=== PATIENT | male | born 1950 | race Caucasian/White ===

== ENCOUNTER 2020-10-12 17:32 | Inpatient (IN) | payer MEDICARE, MEDICAID ==
[~2020-10-12] VITALS: Ht 167.6 cm; Wt 63.2 kg
[2020-10-12] MEDS ORDERED: PIPERACILLIN/TAZ 3.375G PREMIX 50 ML IV ONE (19:52)
[2020-10-12] MEDS ORDERED: PIPERACILLIN/TAZOBACTAM 3.375GM/50ML PREMIX IV ONE (20:00)
[2020-10-12] MEDS ORDERED: VANCOMYCIN 1 G PREMIX 200 ML IV SCH (20:00)
[2020-10-12] MEDS ORDERED: SODIUM CHLORIDE 0.9% 1,000 ML IV ONE (20:00)
[2020-10-12 20:20] LABS: EOSINOPHILS % 2.7 % (0.0-5.0); HEMATOCRIT. 29.4 % (42.0-52.0); LYMPHOCYTES % 14.3 % (20.0-50.0); MEAN CORPUSCULAR HEMOGLOBIN 28.6 pg (28.0-32.0); MEAN CORPUSCULAR VOLUME 83.8 fL (80.0-94.0); MEAN PLATELET VOLUME 7.8 fl (7.4-10.4); MONOCYTES % 14.5 % (2.0-8.0); NEUTROPHILS % 67.5 % (40.0-76.0); PLATELET 371 x1000/uL (130-400); RED BLOOD CELL COUNT 3.51 mill/uL (4.7-6.1); RED CELL DISTRIBUTION WIDTH 14.8 % (11.6-14.6)
[2020-10-12 20:40] LABS: CHLORIDE 100 mEq/L (98-107)
[2020-10-12 20:41] LABS: PROTHROMBIN TIME 10.8 sec (9.6-11.0)
[2020-10-12 21:37] LABS: CLARITY URINE CLEAR (CLEAR); COLOR URINE YELLOW (YELLOW); KETONES URINE NEGATIVE (NEGATIVE); LEUKOCYTE ESTERASE URINE NEGATIVE (NEGATIVE); NITRITE URINE NEGATIVE (NEGATIVE); OCCULT BLOOD URINE NEGATIVE (NEGATIVE); PH URINE 8.5 (4.5-8.0); PROTEIN URINE NEGATIVE (NEGATIVE); SPECIFIC GRAVITY URINE 1.025 (1.005-1.030); UROBILINOGEN URINE 0.2 E.U./dL (0.2-1.0)
[2020-10-12] MEDS ORDERED: ONDANSETRON HCL 4MG/2ML INJ IV PRN (22:00)
[2020-10-12] MEDS ORDERED: GUAIFENESIN 200MG/10ML SUGAR FREE UDC PO PRN (22:00)
[2020-10-12] MEDS ORDERED: DEXTROSE 50% WATER 50ML SYRINGE IV PRN (22:00)
[2020-10-12] MEDS ORDERED: DOCUSATE SODIUM 100MG CAPSULE PO PRN (22:00)
[2020-10-12] MEDS ORDERED: MORPHINE SULFATE 2 MG/ML CPJ (NOT FOR IM USE) IV PRN (22:00)
[2020-10-12] MEDS ORDERED: ACETAMINOPHEN 650MG SUPP PR PRN (22:00)
[2020-10-12] MEDS ORDERED: MAGNESIUM/ALUMINUM HYDROXIDE/SIMETHICONE 30ML UDC PO PRN (22:00)
[2020-10-12] MEDS ORDERED: IPRATROPIUM/ALBUTEROL 0.5-3(2.5)MG/3ML NEB HHN PRN (22:00)
[2020-10-12] MEDS ORDERED: ACETAMINOPHEN 325MG TABLET PO PRN ×2 (22:00)
[2020-10-12] MEDS: CLONIDINE 0.1MG TABLET PO PRN (22:28)
[2020-10-12] MEDS ORDERED: NALOXONE HCL 0.4MG/ML VIAL IV PRN (22:30)
[2020-10-12 23:26] VITALS: BP 119/95
[2020-10-12] MEDS: HALOPERIDOL LACTATE 5MG/ML VIAL IM PRN (23:59)
[2020-10-12] MEDS: ENOXAPARIN 40MG/0.4ML SYR SUBCUT SCH (23:59)
[2020-10-13] VITALS (14 sets, daily range): BP systolic 117–180; BP diastolic 69–100
[2020-10-13] MEDS: DIPHENHYDRAMINE 50MG/ML VIAL IV PRN (01:34)
[2020-10-13] MEDS: CLONIDINE 0.1MG TABLET PO PRN (05:03)
[2020-10-13] MEDS: BLOOD SUGAR DIAGNOSTIC STRIP TEST SCH ×4 (06:05→21:23)
[2020-10-13 07:12] LABS: BASOPHILS % 1.1 % (0.0-2.0); EOSINOPHILS % 3.3 % (0.0-5.0); HEMATOCRIT. 34.4 % (42.0-52.0); HEMOGLOBIN. 11.2 g/dL (14.0-18.0); LYMPHOCYTES % 18.1 % (20.0-50.0); MEAN CORPUSCULAR HEMOGLOBIN 27.7 pg (28.0-32.0); MEAN PLATELET VOLUME 8.1 fl (7.4-10.4); MONOCYTES % 12.4 % (2.0-8.0); NEUTROPHILS % 65.1 % (40.0-76.0); PLATELET 363 x1000/uL (130-400); RED BLOOD CELL COUNT 4.04 mill/uL (4.7-6.1); RED CELL DISTRIBUTION WIDTH 14.9 % (11.6-14.6)
[2020-10-13 07:23] LABS: CHLORIDE 105 mEq/L (98-107)
[2020-10-13 07:35] LABS: LDL CHOLESTEROL 85 mg/dL (5-100)
[2020-10-13 07:36] LABS: CREATINE KINASE 140 IU/L (39-308)
[2020-10-13 07:37] LABS: HDL CHOLESTEROL 45 mg/dL (40-59); T4 FREE 1.19 ng/dL (0.76-1.46)
[2020-10-13] MEDS: AMLODIPINE 5MG TABLET PO SCH ×2 (08:56→21:23)
[2020-10-13] MEDS: METFORMIN HCL 500MG TABLET PO SCH ×2 (08:56→16:43)
[2020-10-13] MEDS: ASPIRIN 81MG EC TABLET PO SCH (08:56)
[2020-10-13] MEDS: INSULIN LISPRO 100 UNITS/ML SUBCUT SCH ×4 (09:22→21:27)
[2020-10-13] MEDS: PIPERACILLIN/TAZOBACTAM 3.375 G in DEXTROSE 5% WATER 50 ML IV SCH ×2 (13:51→19:26)
[2020-10-13] MEDS: VANCOMYCIN 750 MG PREMIX 150 ML IV SCH (14:52)
[2020-10-13] MEDS: SODIUM HYPOCHLORITE 0.125% 473ML SOLUTION TOP SCH (14:53)
[2020-10-13] MEDS ORDERED: FUROSEMIDE 40MG/4ML VIAL IVP NR (16:00)
[2020-10-13] MEDS: ENOXAPARIN 40MG/0.4ML SYR SUBCUT SCH (21:23)
[2020-10-13] MEDS: HALOPERIDOL LACTATE 5MG/ML VIAL IM PRN (22:26)
[2020-10-14] VITALS (11 sets, daily range): BP systolic 100–155; BP diastolic 59–88
[2020-10-14] MEDS: PIPERACILLIN/TAZOBACTAM 3.375 G in DEXTROSE 5% WATER 50 ML IV SCH ×4 (00:43→18:09)
[2020-10-14] MEDS: VANCOMYCIN 750 MG PREMIX 150 ML IV SCH ×2 (01:23→13:13)
[2020-10-14] MEDS: BLOOD SUGAR DIAGNOSTIC STRIP TEST SCH ×4 (06:52→20:03)
[2020-10-14] MEDS: INSULIN LISPRO 100 UNITS/ML SUBCUT SCH ×4 (07:20→21:14)
[2020-10-14] MEDS: METFORMIN HCL 500MG TABLET PO SCH ×2 (09:10→18:09)
[2020-10-14] MEDS: SODIUM HYPOCHLORITE 0.125% 473ML SOLUTION TOP SCH (09:10)
[2020-10-14] MEDS: ASPIRIN 81MG EC TABLET PO SCH (09:10)
[2020-10-14] MEDS: FUROSEMIDE 20MG/2ML VIAL IVP SCH (09:10)
[2020-10-14] MEDS: AMLODIPINE 5MG TABLET PO SCH ×2 (09:11→19:50)
[2020-10-14 09:33] LABS: BASOPHILS % 0.8 % (0.0-2.0); EOSINOPHILS % 1.9 % (0.0-5.0); HEMATOCRIT. 35.1 % (42.0-52.0); HEMOGLOBIN. 11.6 g/dL (14.0-18.0); LYMPHOCYTES % 13.7 % (20.0-50.0); MEAN CORPUSCULAR HEMOGLOBIN 27.6 pg (28.0-32.0); MEAN CORPUSCULAR VOLUME 83.7 fL (80.0-94.0); MEAN PLATELET VOLUME 7.3 fl (7.4-10.4); MONOCYTES % 11.2 % (2.0-8.0); NEUTROPHILS % 72.4 % (40.0-76.0); PLATELET 440 x1000/uL (130-400); RED BLOOD CELL COUNT 4.19 mill/uL (4.7-6.1); RED CELL DISTRIBUTION WIDTH 15.1 % (11.6-14.6)
[2020-10-14 09:51] LABS: CHLORIDE 101 mEq/L (98-107)
[2020-10-14] MEDS: FAMOTIDINE 20MG TABLET PO SCH (19:50)
[2020-10-14] MEDS: LORAZEPAM 2MG/ML CPJ IV PRN (19:51)
[2020-10-15] VITALS (10 sets, daily range): BP systolic 109–142; BP diastolic 40–79
[2020-10-15] MEDS: PIPERACILLIN/TAZOBACTAM 3.375 G in DEXTROSE 5% WATER 50 ML IV SCH ×5 (00:10→23:45)
[2020-10-15] MEDS: VANCOMYCIN 750 MG PREMIX 150 ML IV SCH (01:16)
[2020-10-15] MEDS: BLOOD SUGAR DIAGNOSTIC STRIP TEST SCH ×4 (06:26→20:16)
[2020-10-15 06:54] LABS: CHLORIDE 101 mEq/L (98-107)
[2020-10-15] MEDS: INSULIN LISPRO 100 UNITS/ML SUBCUT SCH ×4 (07:20→20:19)
[2020-10-15] MEDS: METFORMIN HCL 500MG TABLET PO SCH ×2 (07:20→16:44)
[2020-10-15 07:26] LABS: BASOPHILS % 1.3 % (0.0-2.0); EOSINOPHILS % 2.2 % (0.0-5.0); HEMOGLOBIN. 11.1 g/dL (14.0-18.0); LYMPHOCYTES % 16.4 % (20.0-50.0); MEAN CORPUSCULAR HEMOGLOBIN 27.5 pg (28.0-32.0); MEAN CORPUSCULAR VOLUME 84.2 fL (80.0-94.0); MEAN PLATELET VOLUME 7.7 fl (7.4-10.4); NEUTROPHILS % 68.1 % (40.0-76.0); PLATELET 422 x1000/uL (130-400); RED BLOOD CELL COUNT 4.04 mill/uL (4.7-6.1); RED CELL DISTRIBUTION WIDTH 15.4 % (11.6-14.6)
[2020-10-15] MEDS: FUROSEMIDE 20MG/2ML VIAL IVP SCH (08:53)
[2020-10-15] MEDS: ASPIRIN 81MG EC TABLET PO SCH (09:00)
[2020-10-15] MEDS: AMLODIPINE 5MG TABLET PO SCH ×2 (09:00→20:16)
[2020-10-15] MEDS: SODIUM HYPOCHLORITE 0.125% 473ML SOLUTION TOP SCH (09:00)
[2020-10-15] MEDS: LISINOPRIL 2.5MG TABLET PO SCH (10:00)
[2020-10-15] MEDS ORDERED: VANCOMYCIN HCL 1 GM/VIAL ONE (11:36)
[2020-10-15] MEDS ORDERED: BACITRACIN 50,000 UNITS/VIAL ONE (11:36)
[2020-10-15] MEDS ORDERED: PROPOFOL 200MG/20ML VIAL IV ONE (11:37)
[2020-10-15] MEDS ORDERED: FENTANYL CITRATE/PF 50MCG/ML 2ML VIAL ONE (11:37)
[2020-10-15] MEDS ORDERED: ONDANSETRON HCL 4MG/2ML INJ ONE (11:57)
[2020-10-15] MEDS ORDERED: DEXAMETHASONE 4MG/ML 1ML VIAL ONE (11:57)
[2020-10-15] MEDS ORDERED: EPHEDRINE SULFATE 50MG/ML VIAL ONE (11:57)
[2020-10-15] MEDS ORDERED: METOCLOPRAMIDE HCL 10MG/2ML VIAL ONE (11:57)
[2020-10-15] MEDS ORDERED: ONDANSETRON HCL 4MG/2ML INJ IV PRN (12:45)
[2020-10-15] MEDS ORDERED: FENTANYL CITRATE/PF 50MCG/ML 2ML VIAL IV PRN (12:45)
[2020-10-15] MEDS ORDERED: SODIUM CHLORIDE 0.9% 1,000 ML IV SCH (12:45)
[2020-10-15] MEDS ORDERED: HYDROMORPHONE HCL/PF 2MG/ML CPJ IV PRN (12:45)
[2020-10-15] MEDS ORDERED: MEPERIDINE HCL/PF 25MG/ML CPJ IV PRN (12:45)
[2020-10-15] MEDS ORDERED: KETOROLAC 30MG/ML VIAL ONE (12:53)
[2020-10-15] MEDS ORDERED: VANCOMYCIN 1 G PREMIX 200 ML IV SCH (18:00)
[2020-10-15] MEDS: FAMOTIDINE 20MG TABLET PO SCH (20:14)
[2020-10-15] MEDS: ENOXAPARIN 40MG/0.4ML SYR SUBCUT SCH (21:37)
[2020-10-15] MEDS: LORAZEPAM 2MG/ML CPJ IV PRN (21:37)
[2020-10-16] VITALS (10 sets, daily range): BP systolic 100–165; BP diastolic 61–92
[2020-10-16] MEDS: PIPERACILLIN/TAZOBACTAM 3.375 G in DEXTROSE 5% WATER 50 ML IV SCH ×4 (05:18→23:20)
[2020-10-16] MEDS: BLOOD SUGAR DIAGNOSTIC STRIP TEST SCH ×4 (06:27→21:00)
[2020-10-16] MEDS: METFORMIN HCL 500MG TABLET PO SCH ×2 (07:59→16:38)
[2020-10-16] MEDS: INSULIN LISPRO 100 UNITS/ML SUBCUT SCH ×4 (08:00→22:01)
[2020-10-16 08:02] LABS: BASOPHILS % 0.7 % (0.0-2.0); EOSINOPHILS % 0.7 % (0.0-5.0); HEMATOCRIT. 30.5 % (42.0-52.0); MEAN CORPUSCULAR HEMOGLOBIN 27.7 pg (28.0-32.0); MEAN CORPUSCULAR VOLUME 84.3 fL (80.0-94.0); MEAN PLATELET VOLUME 7.3 fl (7.4-10.4); MONOCYTES % 8.8 % (2.0-8.0); NEUTROPHILS % 74.8 % (40.0-76.0); PLATELET 390 x1000/uL (130-400); RED BLOOD CELL COUNT 3.62 mill/uL (4.7-6.1); RED CELL DISTRIBUTION WIDTH 15.1 % (11.6-14.6)
[2020-10-16 08:23] LABS: CHLORIDE 105 mEq/L (98-107)
[2020-10-16] MEDS: AMLODIPINE 5MG TABLET PO SCH ×2 (08:53→22:00)
[2020-10-16] MEDS: LISINOPRIL 2.5MG TABLET PO SCH (08:53)
[2020-10-16] MEDS: FUROSEMIDE 20MG/2ML VIAL IVP SCH (08:54)
[2020-10-16] MEDS: ASPIRIN 81MG EC TABLET PO SCH (08:54)
[2020-10-16] MEDS: SODIUM HYPOCHLORITE 0.125% 473ML SOLUTION TOP SCH (09:00)
[2020-10-16] MEDS: LORAZEPAM 2MG/ML CPJ IV PRN (19:04)
[2020-10-16] MEDS: ENOXAPARIN 40MG/0.4ML SYR SUBCUT SCH (21:59)
[2020-10-16] MEDS: FAMOTIDINE 20MG TABLET PO SCH (22:00)
[2020-10-17] VITALS (7 sets, daily range): BP systolic 83–167; BP diastolic 47–89
[2020-10-17] MEDS: DIPHENHYDRAMINE 50MG/ML VIAL IV PRN (00:45)
[2020-10-17] MEDS: LORAZEPAM 2MG/ML CPJ IV PRN (04:12)
[2020-10-17] MEDS: PIPERACILLIN/TAZOBACTAM 3.375 G in DEXTROSE 5% WATER 50 ML IV SCH ×3 (06:04→18:03)
[2020-10-17 06:53] LABS: BASOPHILS % 1.4 % (0.0-2.0); CHLORIDE 107 mEq/L (98-107); EOSINOPHILS % 2.2 % (0.0-5.0); HEMATOCRIT. 32.1 % (42.0-52.0); HEMOGLOBIN. 10.4 g/dL (14.0-18.0); LYMPHOCYTES % 20.1 % (20.0-50.0); MEAN CORPUSCULAR HEMOGLOBIN 27.6 pg (28.0-32.0); MEAN CORPUSCULAR VOLUME 85.2 fL (80.0-94.0); MEAN PLATELET VOLUME 7.7 fl (7.4-10.4); MONOCYTES % 9.4 % (2.0-8.0); NEUTROPHILS % 66.9 % (40.0-76.0); PLATELET 369 x1000/uL (130-400); RED BLOOD CELL COUNT 3.77 mill/uL (4.7-6.1); RED CELL DISTRIBUTION WIDTH 15.1 % (11.6-14.6)
[2020-10-17] MEDS: BLOOD SUGAR DIAGNOSTIC STRIP TEST SCH ×4 (06:53→20:36)
[2020-10-17] MEDS: METFORMIN HCL 500MG TABLET PO SCH ×2 (07:50→17:58)
[2020-10-17] MEDS: INSULIN LISPRO 100 UNITS/ML SUBCUT SCH ×4 (07:50→21:11)
[2020-10-17] MEDS: FUROSEMIDE 20MG/2ML VIAL IVP SCH (10:06)
[2020-10-17] MEDS: ASPIRIN 81MG EC TABLET PO SCH (10:09)
[2020-10-17] MEDS: AMLODIPINE 5MG TABLET PO SCH ×2 (10:12→21:00)
[2020-10-17] MEDS: LISINOPRIL 2.5MG TABLET PO SCH (10:12)
[2020-10-17] MEDS: HYDROCODONE/ACETAMINOPHEN 5/325MG TABLET PO PRN ×2 (10:15→18:01)
[2020-10-17] MEDS: SODIUM HYPOCHLORITE 0.125% 473ML SOLUTION TOP SCH (10:19)
[2020-10-17] MEDS: HALOPERIDOL LACTATE 5MG/ML VIAL IM PRN (15:46)
[2020-10-17] MEDS: SODIUM CHLORIDE 0.45% 1,000 ML IV SCH (17:00)
[2020-10-17] MEDS: ENOXAPARIN 40MG/0.4ML SYR SUBCUT SCH (21:08)
[2020-10-17] MEDS: FAMOTIDINE 20MG TABLET PO SCH (21:08)
[2020-10-18] VITALS: BP 149/104
[2020-10-18] MEDS: PIPERACILLIN/TAZOBACTAM 3.375 G in DEXTROSE 5% WATER 50 ML IV SCH ×4 (00:24→17:29)
[2020-10-18] MEDS: LORAZEPAM 2MG/ML CPJ IV PRN ×3 (01:44→21:31)
[2020-10-18] MEDS: SODIUM CHLORIDE 0.45% 1,000 ML IV SCH ×3 (01:45→22:45)
[2020-10-18 04:00] VITALS: BP 154/88
[2020-10-18 06:45] LABS: BASOPHILS % 1.9 % (0.0-2.0); EOSINOPHILS % 3.3 % (0.0-5.0); HEMATOCRIT. 30.5 % (42.0-52.0); HEMOGLOBIN. 10.1 g/dL (14.0-18.0); LYMPHOCYTES % 21.5 % (20.0-50.0); MEAN CORPUSCULAR HEMOGLOBIN 27.8 pg (28.0-32.0); MEAN CORPUSCULAR VOLUME 83.7 fL (80.0-94.0); MEAN PLATELET VOLUME 7.6 fl (7.4-10.4); MONOCYTES % 9.5 % (2.0-8.0); NEUTROPHILS % 63.8 % (40.0-76.0); PLATELET 371 x1000/uL (130-400); RED BLOOD CELL COUNT 3.64 mill/uL (4.7-6.1)
[2020-10-18] MEDS: BLOOD SUGAR DIAGNOSTIC STRIP TEST SCH ×4 (06:47→21:31)
[2020-10-18] MEDS: METFORMIN HCL 500MG TABLET PO SCH ×2 (06:47→16:30)
[2020-10-18] MEDS: INSULIN LISPRO 100 UNITS/ML SUBCUT SCH ×4 (07:50→21:46)
[2020-10-18 08:00] VITALS: BP 152/84
[2020-10-18 08:23] LABS: CHLORIDE 104 mEq/L (98-107)
[2020-10-18] MEDS: ASPIRIN 81MG EC TABLET PO SCH (09:00)
[2020-10-18] MEDS: SODIUM HYPOCHLORITE 0.125% 473ML SOLUTION TOP SCH (09:00)
[2020-10-18] MEDS: AMLODIPINE 5MG TABLET PO SCH ×2 (09:00→21:00)
[2020-10-18] MEDS: LISINOPRIL 2.5MG TABLET PO SCH (09:00)
[2020-10-18] MEDS: FUROSEMIDE 20MG/2ML VIAL IVP SCH (11:05)
[2020-10-18 12:00] VITALS: BP 116/74
[2020-10-18 20:00] VITALS: BP 117/65
[2020-10-18] MEDS: HALOPERIDOL LACTATE 5MG/ML VIAL IM PRN (20:21)
[2020-10-18] MEDS: FAMOTIDINE 20MG TABLET PO SCH (21:30)
[2020-10-18] MEDS: ENOXAPARIN 40MG/0.4ML SYR SUBCUT SCH (21:31)
[2020-10-19] VITALS: BP 120/75
[2020-10-19] MEDS: PIPERACILLIN/TAZOBACTAM 3.375 G in DEXTROSE 5% WATER 50 ML IV SCH ×4 (00:48→18:46)
[2020-10-19] MEDS: HALOPERIDOL LACTATE 5MG/ML VIAL IM PRN ×2 (02:58→22:36)
[2020-10-19 04:00] VITALS: BP 118/68
[2020-10-19] MEDS: LORAZEPAM 2MG/ML CPJ IV PRN (04:39)
[2020-10-19] MEDS: BLOOD SUGAR DIAGNOSTIC STRIP TEST SCH ×4 (06:54→22:15)
[2020-10-19] MEDS: METFORMIN HCL 500MG TABLET PO SCH ×2 (07:50→18:46)
[2020-10-19 08:00] VITALS: BP 134/62
[2020-10-19] MEDS: AMLODIPINE 5MG TABLET PO SCH ×2 (09:00→22:43)
[2020-10-19] MEDS: ASPIRIN 81MG EC TABLET PO SCH (09:00)
[2020-10-19] MEDS: SODIUM HYPOCHLORITE 0.125% 473ML SOLUTION TOP SCH (09:00)
[2020-10-19] MEDS: LISINOPRIL 2.5MG TABLET PO SCH (09:00)
[2020-10-19] MEDS: FUROSEMIDE 20MG/2ML VIAL IVP SCH (09:37)
[2020-10-19] MEDS: SODIUM CHLORIDE 0.45% 1,000 ML IV SCH ×2 (09:43→19:10)
[2020-10-19] MEDS: INSULIN LISPRO 100 UNITS/ML SUBCUT SCH ×4 (09:48→21:00)
[2020-10-19 12:00] VITALS: BP 136/68
[2020-10-19 16:00] VITALS: BP 119/73
[2020-10-19 20:00] VITALS: BP 124/77
[2020-10-19] MEDS: FAMOTIDINE 20MG TABLET PO SCH (22:23)
[2020-10-19] MEDS: ENOXAPARIN 40MG/0.4ML SYR SUBCUT SCH (22:24)
[2020-10-20] VITALS (7 sets, daily range): BP systolic 113–132; BP diastolic 61–82
[2020-10-20] MEDS: PIPERACILLIN/TAZOBACTAM 3.375 G in DEXTROSE 5% WATER 50 ML IV SCH ×5 (02:46→23:55)
[2020-10-20] MEDS: BLOOD SUGAR DIAGNOSTIC STRIP TEST SCH ×4 (07:05→21:58)
[2020-10-20] MEDS: METFORMIN HCL 500MG TABLET PO SCH ×2 (07:05→18:49)
[2020-10-20] MEDS: AMLODIPINE 5MG TABLET PO SCH ×2 (09:42→21:59)
[2020-10-20] MEDS: FUROSEMIDE 20MG/2ML VIAL IVP SCH (09:43)
[2020-10-20] MEDS: ASPIRIN 81MG EC TABLET PO SCH (09:43)
[2020-10-20] MEDS: LISINOPRIL 2.5MG TABLET PO SCH (09:43)
[2020-10-20] MEDS: SODIUM HYPOCHLORITE 0.125% 473ML SOLUTION TOP SCH (09:44)
[2020-10-20] MEDS: INSULIN LISPRO 100 UNITS/ML SUBCUT SCH ×4 (09:49→22:09)
[2020-10-20] MEDS ORDERED: LIDOCAINE HCL 1% 20ML VIAL (Pyxis) INJ ONE (10:54)
[2020-10-20] MEDS: SODIUM CHLORIDE 0.45% 1,000 ML IV SCH ×3 (14:05→14:07)
[2020-10-20] MEDS ORDERED: NYSTATIN/TRIAMCIN OINT 15GM TOP SCH (17:00)
[2020-10-20] MEDS: FAMOTIDINE 20MG TABLET PO SCH (21:59)
[2020-10-20] MEDS: ENOXAPARIN 40MG/0.4ML SYR SUBCUT SCH (21:59)
[2020-10-20] MEDS: HALOPERIDOL LACTATE 5MG/ML VIAL IM PRN (22:00)
[2020-10-21] VITALS: BP 101/58
[2020-10-21 04:00] VITALS: BP 116/80
[2020-10-21] MEDS: PIPERACILLIN/TAZOBACTAM 3.375 G in DEXTROSE 5% WATER 50 ML IV SCH (06:28)
[2020-10-21] MEDS: BLOOD SUGAR DIAGNOSTIC STRIP TEST SCH (06:29)
[2020-10-21 07:25] LABS: BASOPHILS % 1.3 % (0.0-2.0); HEMATOCRIT. 33.2 % (42.0-52.0); LYMPHOCYTES % 20.9 % (20.0-50.0); MEAN CORPUSCULAR HEMOGLOBIN 27.5 pg (28.0-32.0); MEAN PLATELET VOLUME 8.1 fl (7.4-10.4); MONOCYTES % 9.7 % (2.0-8.0); NEUTROPHILS % 65.1 % (40.0-76.0); PLATELET 368 x1000/uL (130-400); RED CELL DISTRIBUTION WIDTH 15.2 % (11.6-14.6)
[2020-10-21] MEDS: INSULIN LISPRO 100 UNITS/ML SUBCUT SCH (07:50)
[2020-10-21 08:00] VITALS: BP 132/77
[2020-10-21 08:44] LABS: CHLORIDE 105 mEq/L (98-107)
[2020-10-21] MEDS: ASPIRIN 81MG EC TABLET PO SCH (08:54)
[2020-10-21] MEDS: FUROSEMIDE 20MG/2ML VIAL IVP SCH (08:54)
[2020-10-21] MEDS: METFORMIN HCL 500MG TABLET PO SCH (08:54)
[2020-10-21] MEDS: LISINOPRIL 2.5MG TABLET PO SCH (08:55)
[2020-10-21] MEDS: AMLODIPINE 5MG TABLET PO SCH (08:55)
[2020-10-21] MEDS: HALOPERIDOL LACTATE 5MG/ML VIAL IM PRN (08:56)
[2020-10-21] MEDS: SODIUM HYPOCHLORITE 0.125% 473ML SOLUTION TOP SCH (08:58)
[2020-10-21 10:20] VITALS: BP 132/77
[2020-11-05] MEDS ORDERED: MEMA5TAB42 PO (10:53)
[2020-11-05] MEDS ORDERED: FAMO20TA8 PO (10:53)
[2020-11-05] MEDS ORDERED: AMLO5TAB88 PO (10:53)
[2020-11-05] MEDS ORDERED: METF-873 PO (10:53)
[2020-11-05] MEDS ORDERED: FURO20TA4 PO (10:53)
[2020-11-05] MEDS ORDERED: LORA2DIS6 SQ (10:53)
[2020-11-05] MEDS ORDERED: QUET25TA34 PO (10:53)
[2020-11-05] MEDS ORDERED: LEVO750T46 PO (10:53)
== END 2020-10-21 10:40 | DRG 616 ==
LOC: EDBD 17:32 → ER 17:32 → 3WST 21:37 → EDBEDREQ 21:39 → EDBEDREQSVC 21:39 → EDBEDREQTM 21:39 → ENRESERV 22:00 → 3WST 10-13 02:58 → 6EST 10-17 02:27
PROVIDERS: ADMIT Internal Medicine; ATTEND Internal Medicine
PROC: 0Y6T0Z0 Detachment at Right 3rd Toe, Complete, Open Approach (ICD-10-PCS; principal; 2020-10-15)
PROC: 0QBN0ZZ Excision of Right Metatarsal, Open Approach (ICD-10-PCS; 2020-10-15)
PROC: 0QBN0ZZ Excision of Right Metatarsal, Open Approach (ICD-10-PCS; 2020-10-20)
PROC: B5181ZA Fluoroscopy of Superior Vena Cava using Low Osmolar Contrast, Guidance (ICD-10-PCS; 2020-10-20)
PROC: 02HV33Z Insertion of Infusion Device into Superior Vena Cava, Percutaneous Approach (ICD-10-PCS; 2020-10-20)
PROC: B548ZZA Ultrasonography of Superior Vena Cava, Guidance (ICD-10-PCS; 2020-10-20)
DX: E11.621 Type 2 diabetes mellitus with foot ulcer (principal); E43 Unspecified severe protein-calorie malnutrition; G93.41 Metabolic encephalopathy; E87.1 Hypo-osmolality and hyponatremia; L03.115 Cellulitis of right lower limb; I31.3 Pericardial effusion (noninflammatory); J84.9 Interstitial pulmonary disease, unspecified; M86.171 Other acute osteomyelitis, right ankle and foot; E11.69 Type 2 diabetes mellitus with other specified complication; E11.51 Type 2 diabetes mellitus with diabetic peripheral angiopathy without gangrene; D64.9 Anemia, unspecified; E11.65 Type 2 diabetes mellitus with hyperglycemia; B96.5 Pseudomonas (aeruginosa) (mallei) (pseudomallei) as the cause of diseases classified elsewhere; F10.10 Alcohol abuse, uncomplicated; Z20.822 Contact with and (suspected) exposure to COVID-19; I10 Essential (primary) hypertension; I35.0 Nonrheumatic aortic (valve) stenosis; L97.519 Non-pressure chronic ulcer of other part of right foot with unspecified severity; Z82.49 Family history of ischemic heart disease and other diseases of the circulatory system; Z91.19 Patient's noncompliance with other medical treatment and regimen; Z68.22 Body mass index [BMI] 22.0-22.9, adult; Z79.1 Long term (current) use of non-steroidal anti-inflammatories (NSAID); Z79.899 Other long term (current) drug therapy; B95.61 Methicillin susceptible Staphylococcus aureus infection as the cause of diseases classified elsewhere
CPT/HCPCS: 36415; 36573; 71045; 73630; 73718; 80048; 80053; 80061; 80202; 81003; 82550; 82962; 83036; 83605; 83735; 83880; 84145; 84439; 84443; 84484; 85025; 85651; 86140; 86850; 86900; 87070; 87075; 87077; 87186; 87426; 88305; 88311; 93005; 93306; 93923; 93971; 97116; 97162; 99285; A6261; C1725; C1893; J1100; J1200; J1630; J1650; J1815; J1885; J1940; J2060; J2405; J2543; J2704; J2765; J3010; J3370; J3490; J7030; J7040; J7060

== ENCOUNTER 2020-11-10 22:25 | Inpatient (IN) | payer MEDICARE, MEDICAID ==
[~2020-11-10] VITALS: Ht 167.6 cm; Wt 65.9 kg
[~2020-11-10 22:25] MED LIST: AMLO5TAB88 PO; FAMO20TA8 PO; FURO20TA4 PO; LEVO750T46 PO; LORA2DIS6 SQ; MEMA5TAB42 PO; METF-873 PO; QUET25TA34 PO
[2020-11-11] MEDS ORDERED: LORAZEPAM 0.5MG TABLET PO ONE (01:00)
[2020-11-11] MEDS: QUETIAPINE FUMARATE 50MG TABLET PO SCH ×2 (01:02→17:54)
[2020-11-11] MEDS ORDERED: METFORMIN HCL 850MG TABLET PO ONE (15:00)
[2020-11-11] MEDS ORDERED: METFORMIN HCL 500MG TABLET PO NR (15:30)
[2020-11-12 06:30] LABS: BASOPHILS % 0.8 % (0.0-2.0); EOSINOPHILS % 2.4 % (0.0-5.0); HEMOGLOBIN. 10.6 g/dL (14.0-18.0); LYMPHOCYTES % 25.2 % (20.0-50.0); MEAN CORPUSCULAR HEMOGLOBIN 27.3 pg (28.0-32.0); MEAN CORPUSCULAR VOLUME 82.4 fL (80.0-94.0); MEAN PLATELET VOLUME 8.4 fl (7.4-10.4); MONOCYTES % 10.7 % (2.0-8.0); NEUTROPHILS % 60.9 % (40.0-76.0); PLATELET 208 x1000/uL (130-400); RED BLOOD CELL COUNT 3.89 mill/uL (4.7-6.1)
[2020-11-12 06:37] LABS: CHLORIDE 106 mEq/L (98-107)
[2020-11-12] MEDS: QUETIAPINE FUMARATE 50MG TABLET PO SCH (09:22)
[2020-11-12] MEDS ORDERED: DEXTROSE 50% WATER 50ML SYRINGE IV PRN (11:15)
[2020-11-12] MEDS ORDERED: LEVOFLOXACIN 250MG TABLET PO SCH (11:15)
[2020-11-12] MEDS ORDERED: INSULIN LISPRO 100 UNITS/ML SUBCUT SCH (12:00)
[2020-11-12] MEDS: BLOOD SUGAR DIAGNOSTIC STRIP TEST SCH ×3 (12:41→21:44)
[2020-11-12] MEDS ORDERED: ACETAMINOPHEN 325MG TABLET PO PRN (14:00)
[2020-11-12] MEDS ORDERED: ACETAMINOPHEN 650MG SUPP PR PRN (14:00)
[2020-11-12] MEDS ORDERED: BISACODYL 10MG SUPP PR PRN (14:00)
[2020-11-12] MEDS ORDERED: CLONIDINE 0.1MG TABLET PO PRN (14:00)
[2020-11-12] MEDS ORDERED: IPRATROPIUM/ALBUTEROL 0.5-3(2.5)MG/3ML NEB HHN PRN (14:00)
[2020-11-12] MEDS ORDERED: ONDANSETRON HCL 4MG/2ML INJ IV PRN (14:00)
[2020-11-12] MEDS: CEFEPIME 2,000 MG in DEXT 5% WATER 100 ML IV SCH (14:45)
[2020-11-12] MEDS: ENOXAPARIN 40MG/0.4ML SYR SUBCUT SCH (16:10)
[2020-11-12] MEDS: INSULIN LISPRO 100 UNITS/ML SUBCUT SCH ×2 (17:32→21:00)
[2020-11-12 20:00] VITALS: BP 104/68
[2020-11-12 22:40] VITALS: BP 138/77
[2020-11-12] MEDS: FAMOTIDINE 20MG TABLET PO SCH (23:40)
[2020-11-13] VITALS: BP 147/81
[2020-11-13] MEDS: LORAZEPAM 2MG/ML CPJ IV PRN ×3 (00:11→23:49)
[2020-11-13] MEDS: CEFEPIME 2,000 MG in DEXT 5% WATER 100 ML IV SCH ×3 (01:53→20:43)
[2020-11-13 04:00] VITALS: BP 134/87
[2020-11-13] MEDS: BLOOD SUGAR DIAGNOSTIC STRIP TEST SCH ×4 (06:52→20:44)
[2020-11-13 08:00] VITALS: BP 143/87
[2020-11-13 08:34] LABS: EOSINOPHILS % 3.1 % (0.0-5.0); HEMATOCRIT. 32.7 % (42.0-52.0); HEMOGLOBIN. 10.5 g/dL (14.0-18.0); LYMPHOCYTES % 25.9 % (20.0-50.0); MEAN CORPUSCULAR VOLUME 84.4 fL (80.0-94.0); MEAN PLATELET VOLUME 9.1 fl (7.4-10.4); MONOCYTES % 10.3 % (2.0-8.0); NEUTROPHILS % 59.7 % (40.0-76.0); PLATELET 208 x1000/uL (130-400); RED BLOOD CELL COUNT 3.88 mill/uL (4.7-6.1); RED CELL DISTRIBUTION WIDTH 16.4 % (11.6-14.6)
[2020-11-13 08:41] LABS: CHLORIDE 104 mEq/L (98-107)
[2020-11-13] MEDS: QUETIAPINE FUMARATE 50MG TABLET PO SCH (08:54)
[2020-11-13] MEDS: ENOXAPARIN 40MG/0.4ML SYR SUBCUT SCH (08:54)
[2020-11-13] MEDS: INSULIN LISPRO 100 UNITS/ML SUBCUT SCH ×4 (09:10→20:44)
[2020-11-13] MEDS: LEVOFLOXACIN 250MG TABLET PO SCH (12:34)
[2020-11-13] MEDS ORDERED: HYDROCODONE/ACETAMINOPHEN 5/325MG TABLET PO PRN (13:45)
[2020-11-13] MEDS ORDERED: NALOXONE HCL 0.4MG/ML VIAL IV PRN (14:00)
[2020-11-13 20:00] VITALS: BP 128/77
[2020-11-13] MEDS: FAMOTIDINE 20MG TABLET PO SCH (20:44)
[2020-11-14] VITALS: BP 155/92
[2020-11-14 04:00] VITALS: BP 148/80
[2020-11-14] MEDS: LORAZEPAM 2MG/ML CPJ IV PRN ×2 (05:57→21:26)
[2020-11-14] MEDS: BLOOD SUGAR DIAGNOSTIC STRIP TEST SCH ×4 (06:18→21:25)
[2020-11-14 08:00] VITALS: BP 147/86
[2020-11-14] MEDS: CEFEPIME 2,000 MG in DEXT 5% WATER 100 ML IV SCH ×2 (08:41→21:25)
[2020-11-14] MEDS: QUETIAPINE FUMARATE 50MG TABLET PO SCH ×2 (08:41→18:38)
[2020-11-14] MEDS: ENOXAPARIN 40MG/0.4ML SYR SUBCUT SCH (08:42)
[2020-11-14] MEDS: INSULIN LISPRO 100 UNITS/ML SUBCUT SCH ×4 (08:43→21:25)
[2020-11-14] MEDS: LEVOFLOXACIN 250MG TABLET PO SCH (11:51)
[2020-11-14 12:00] VITALS: BP 113/83
[2020-11-14 16:00] VITALS: BP 123/76
[2020-11-14 20:00] VITALS: BP 149/89
[2020-11-14] MEDS: FAMOTIDINE 20MG TABLET PO SCH (21:25)
[2020-11-15] VITALS: BP 133/75
[2020-11-15 04:00] VITALS: BP_SYST 100; BP_SYST 123; BP_DIAS 59; BP_DIAS 69
[2020-11-15 06:16] LABS: CHLORIDE 105 mEq/L (98-107)
[2020-11-15 06:42] LABS: HEMATOCRIT 33.1 % (42.0-52.0); HEMOGLOBIN 10.7 g/dL (14.0-18.0); MEAN CORPUSCULAR HEMOGLOBIN 27.1 pg (28.0-32.0); MEAN CORPUSCULAR VOLUME 83.6 fL (80.0-94.0); PLATELET 179 x1000/uL (130-400); RED BLOOD CELL COUNT 3.96 mill/uL (4.7-6.1); RED CELL DISTRIBUTION WIDTH 15.8 % (11.6-14.6)
[2020-11-15] MEDS: BLOOD SUGAR DIAGNOSTIC STRIP TEST SCH ×4 (07:20→21:08)
[2020-11-15 08:00] VITALS: BP 121/76
[2020-11-15] MEDS: INSULIN LISPRO 100 UNITS/ML SUBCUT SCH ×4 (08:37→22:12)
[2020-11-15] MEDS: QUETIAPINE FUMARATE 50MG TABLET PO SCH ×2 (08:38→18:13)
[2020-11-15] MEDS: ENOXAPARIN 40MG/0.4ML SYR SUBCUT SCH (08:38)
[2020-11-15] MEDS: CEFEPIME 2,000 MG in DEXT 5% WATER 100 ML IV SCH ×2 (08:38→21:08)
[2020-11-15 12:00] VITALS: BP 112/67
[2020-11-15] MEDS: LEVOFLOXACIN 250MG TABLET PO SCH (12:43)
[2020-11-15] MEDS: LORAZEPAM 2MG/ML CPJ IV PRN ×2 (12:43→19:42)
[2020-11-15 16:00] VITALS: BP 156/58
[2020-11-15 20:00] VITALS: BP 107/68
[2020-11-15] MEDS: FAMOTIDINE 20MG TABLET PO SCH (21:08)
[2020-11-16] VITALS: BP 111/70
[2020-11-16] MEDS: LORAZEPAM 2MG/ML CPJ IV PRN (03:42)
[2020-11-16 04:00] VITALS: BP 96/53
[2020-11-16] MEDS: BLOOD SUGAR DIAGNOSTIC STRIP TEST SCH ×4 (06:31→21:00)
[2020-11-16] MEDS: INSULIN LISPRO 100 UNITS/ML SUBCUT SCH ×4 (06:56→21:00)
[2020-11-16 08:00] VITALS: BP 113/65
[2020-11-16] MEDS: QUETIAPINE FUMARATE 50MG TABLET PO SCH ×2 (09:01→18:00)
[2020-11-16] MEDS: ENOXAPARIN 40MG/0.4ML SYR SUBCUT SCH (09:02)
[2020-11-16] MEDS: CEFEPIME 2,000 MG in DEXT 5% WATER 100 ML IV SCH (11:21)
[2020-11-16] MEDS: LEVOFLOXACIN 250MG TABLET PO SCH (11:21)
[2020-11-16 12:00] VITALS: BP 106/64
[2020-11-16 16:00] VITALS: BP 149/83
[2020-11-16 20:00] VITALS: BP 129/80
[2020-11-17] VITALS: BP 138/76
[2020-11-17] MEDS: CEFEPIME 2,000 MG in DEXT 5% WATER 100 ML IV SCH ×3 (00:10→21:36)
[2020-11-17] MEDS: LORAZEPAM 2MG/ML CPJ IV PRN (00:11)
[2020-11-17] MEDS: FAMOTIDINE 20MG TABLET PO SCH ×2 (00:20→21:36)
[2020-11-17 04:00] VITALS: BP 145/69
[2020-11-17] MEDS: BLOOD SUGAR DIAGNOSTIC STRIP TEST SCH ×4 (07:35→21:36)
[2020-11-17 08:00] VITALS: BP 114/67
[2020-11-17] MEDS: ENOXAPARIN 40MG/0.4ML SYR SUBCUT SCH (09:20)
[2020-11-17] MEDS: QUETIAPINE FUMARATE 50MG TABLET PO SCH ×2 (09:20→17:34)
[2020-11-17] MEDS: INSULIN LISPRO 100 UNITS/ML SUBCUT SCH ×5 (09:22→22:32)
[2020-11-17 12:00] VITALS: BP 90/52
[2020-11-17] MEDS: LEVOFLOXACIN 250MG TABLET PO SCH (12:32)
[2020-11-17 16:00] VITALS: BP 112/73
[2020-11-17] MEDS ORDERED: LACTULOSE 20G/30ML UDC PO NR (16:15)
[2020-11-17] MEDS: METOCLOPRAMIDE HCL 10MG/2ML VIAL IV SCH ×2 (18:58→23:54)
[2020-11-17 20:00] VITALS: BP 98/65
[2020-11-18 00:15] VITALS: BP 90/58
[2020-11-18] MEDS: LORAZEPAM 2MG/ML CPJ IV PRN ×2 (01:30→23:35)
[2020-11-18 04:20] VITALS: BP 123/75
[2020-11-18] MEDS: METOCLOPRAMIDE HCL 10MG/2ML VIAL IV SCH ×4 (06:19→23:35)
[2020-11-18] MEDS: BLOOD SUGAR DIAGNOSTIC STRIP TEST SCH ×4 (06:31→21:30)
[2020-11-18 08:00] VITALS: BP 97/57
[2020-11-18] MEDS: CEFEPIME 2,000 MG in DEXT 5% WATER 100 ML IV SCH ×2 (09:21→21:30)
[2020-11-18] MEDS: QUETIAPINE FUMARATE 50MG TABLET PO SCH ×2 (09:21→18:15)
[2020-11-18] MEDS: ENOXAPARIN 40MG/0.4ML SYR SUBCUT SCH (09:22)
[2020-11-18] MEDS: INSULIN LISPRO 100 UNITS/ML SUBCUT SCH ×4 (09:33→21:54)
[2020-11-18 12:00] VITALS: BP 90/50
[2020-11-18] MEDS: LEVOFLOXACIN 250MG TABLET PO SCH (13:54)
[2020-11-18 16:00] VITALS: BP 126/73
[2020-11-18 20:00] VITALS: BP 102/63
[2020-11-18] MEDS: FAMOTIDINE 20MG TABLET PO SCH (21:30)
[2020-11-19] VITALS: BP 116/69
[2020-11-19 04:00] VITALS: BP 118/61
[2020-11-19] MEDS: METOCLOPRAMIDE HCL 10MG/2ML VIAL IV SCH ×4 (06:34→23:02)
[2020-11-19] MEDS: BLOOD SUGAR DIAGNOSTIC STRIP TEST SCH ×4 (06:49→20:56)
[2020-11-19 08:00] VITALS: BP 113/71
[2020-11-19] MEDS: INSULIN LISPRO 100 UNITS/ML SUBCUT SCH ×4 (08:27→21:02)
[2020-11-19] MEDS: QUETIAPINE FUMARATE 50MG TABLET PO SCH ×2 (11:08→17:35)
[2020-11-19] MEDS: ENOXAPARIN 40MG/0.4ML SYR SUBCUT SCH (11:09)
[2020-11-19] MEDS: CEFEPIME 2,000 MG in DEXT 5% WATER 100 ML IV SCH ×2 (11:09→20:49)
[2020-11-19] MEDS: LEVOFLOXACIN 250MG TABLET PO SCH (11:11)
[2020-11-19 12:00] VITALS: BP 90/58
[2020-11-19 15:50] LABS: BASOPHILS % 0.5 % (0.0-2.0); EOSINOPHILS % 1.9 % (0.0-5.0); HEMATOCRIT. 29.4 % (42.0-52.0); HEMOGLOBIN. 9.5 g/dL (14.0-18.0); LYMPHOCYTES % 16.4 % (20.0-50.0); MEAN CORPUSCULAR HEMOGLOBIN 27.1 pg (28.0-32.0); MEAN CORPUSCULAR VOLUME 83.7 fL (80.0-94.0); MEAN PLATELET VOLUME 8.6 fl (7.4-10.4); MONOCYTES % 10.4 % (2.0-8.0); NEUTROPHILS % 70.8 % (40.0-76.0); PLATELET 167 x1000/uL (130-400); RED BLOOD CELL COUNT 3.51 mill/uL (4.7-6.1); RED CELL DISTRIBUTION WIDTH 15.8 % (11.6-14.6)
[2020-11-19 15:53] LABS: CHLORIDE 104 mEq/L (98-107)
[2020-11-19 16:00] VITALS: BP 118/74
[2020-11-19 20:00] VITALS: BP 109/69
[2020-11-19] MEDS: FAMOTIDINE 20MG TABLET PO SCH (20:49)
[2020-11-19] MEDS: LORAZEPAM 2MG/ML CPJ IV PRN (23:02)
[2020-11-20] VITALS: BP 126/67
[2020-11-20 04:00] VITALS: BP 128/62
[2020-11-20] MEDS: METOCLOPRAMIDE HCL 10MG/2ML VIAL IV SCH ×3 (05:17→18:55)
[2020-11-20] MEDS: BLOOD SUGAR DIAGNOSTIC STRIP TEST SCH ×4 (07:20→21:00)
[2020-11-20 08:00] VITALS: BP 109/64
[2020-11-20] MEDS: QUETIAPINE FUMARATE 50MG TABLET PO SCH ×2 (08:56→16:55)
[2020-11-20] MEDS: CEFEPIME 2,000 MG in DEXT 5% WATER 100 ML IV SCH ×2 (08:57→22:04)
[2020-11-20] MEDS: INSULIN LISPRO 100 UNITS/ML SUBCUT SCH ×4 (08:59→22:05)
[2020-11-20] MEDS: ENOXAPARIN 40MG/0.4ML SYR SUBCUT SCH (09:03)
[2020-11-20] MEDS: LEVOFLOXACIN 250MG TABLET PO SCH (11:08)
[2020-11-20 12:00] VITALS: BP 94/62
[2020-11-20 16:00] VITALS: BP 118/67
[2020-11-20] MEDS: LORAZEPAM 2MG/ML CPJ IV PRN ×2 (16:56→22:46)
[2020-11-20 20:00] VITALS: BP 121/50
[2020-11-20] MEDS: FAMOTIDINE 20MG TABLET PO SCH (22:05)
[2020-11-21] VITALS: BP 117/57
[2020-11-21] MEDS: METOCLOPRAMIDE HCL 10MG/2ML VIAL IV SCH ×4 (01:01→17:31)
[2020-11-21 04:00] VITALS: BP 130/68
[2020-11-21] MEDS: LORAZEPAM 2MG/ML CPJ IV PRN ×3 (04:38→22:33)
[2020-11-21] MEDS: BLOOD SUGAR DIAGNOSTIC STRIP TEST SCH ×4 (06:20→21:33)
[2020-11-21 08:00] VITALS: BP 91/50
[2020-11-21] MEDS: INSULIN LISPRO 100 UNITS/ML SUBCUT SCH ×4 (08:50→21:00)
[2020-11-21] MEDS: ENOXAPARIN 40MG/0.4ML SYR SUBCUT SCH (08:54)
[2020-11-21] MEDS: CEFEPIME 2,000 MG in DEXT 5% WATER 100 ML IV SCH ×2 (08:54→21:33)
[2020-11-21] MEDS: QUETIAPINE FUMARATE 50MG TABLET PO SCH ×2 (09:48→16:38)
[2020-11-21] MEDS: LEVOFLOXACIN 250MG TABLET PO SCH (11:56)
[2020-11-21 12:00] VITALS: BP 101/56
[2020-11-21 16:00] VITALS: BP 100/54
[2020-11-21 20:00] VITALS: BP 107/59
[2020-11-21] MEDS: INSULIN GLARGINE UD 100 UNITS/ML SYR SUBCUT SCH (21:33)
[2020-11-21] MEDS: FAMOTIDINE 20MG TABLET PO SCH (21:33)
[2020-11-22] VITALS: BP 118/50
[2020-11-22] MEDS: METOCLOPRAMIDE HCL 10MG/2ML VIAL IV SCH ×4 (00:50→17:34)
[2020-11-22 04:00] VITALS: BP 127/82
[2020-11-22] MEDS: LORAZEPAM 2MG/ML CPJ IV PRN ×2 (04:44→11:04)
[2020-11-22] MEDS: BLOOD SUGAR DIAGNOSTIC STRIP TEST SCH ×4 (06:21→21:20)
[2020-11-22 08:00] VITALS: BP 131/73
[2020-11-22] MEDS: QUETIAPINE FUMARATE 50MG TABLET PO SCH ×2 (08:51→17:35)
[2020-11-22] MEDS: CEFEPIME 2,000 MG in DEXT 5% WATER 100 ML IV SCH ×2 (08:51→21:20)
[2020-11-22] MEDS: ENOXAPARIN 40MG/0.4ML SYR SUBCUT SCH (08:52)
[2020-11-22] MEDS: INSULIN LISPRO 100 UNITS/ML SUBCUT SCH ×4 (08:59→22:02)
[2020-11-22] MEDS: LEVOFLOXACIN 250MG TABLET PO SCH (10:25)
[2020-11-22 12:00] VITALS: BP 104/59
[2020-11-22 16:00] VITALS: BP 107/69
[2020-11-22 16:52] LABS: BASOPHILS % 0.5 % (0.0-2.0); EOSINOPHILS % 2.2 % (0.0-5.0); HEMATOCRIT. 29.5 % (42.0-52.0); HEMOGLOBIN. 9.7 g/dL (14.0-18.0); LYMPHOCYTES % 14.8 % (20.0-50.0); MEAN CORPUSCULAR HEMOGLOBIN 27.1 pg (28.0-32.0); MEAN CORPUSCULAR VOLUME 82.1 fL (80.0-94.0); MEAN PLATELET VOLUME 8.4 fl (7.4-10.4); MONOCYTES % 12.3 % (2.0-8.0); NEUTROPHILS % 70.2 % (40.0-76.0); PLATELET 222 x1000/uL (130-400); RED CELL DISTRIBUTION WIDTH 15.2 % (11.6-14.6)
[2020-11-22 20:00] VITALS: BP 111/68
[2020-11-22] MEDS: FAMOTIDINE 20MG TABLET PO SCH (21:00)
[2020-11-22 21:03] LABS: CHLORIDE 105 mEq/L (98-107)
[2020-11-22] MEDS: INSULIN GLARGINE UD 100 UNITS/ML SYR SUBCUT SCH (22:04)
[2020-11-23] VITALS: BP 100/56
[2020-11-23] MEDS: METOCLOPRAMIDE HCL 10MG/2ML VIAL IV SCH ×5 (00:32→23:17)
[2020-11-23 04:00] VITALS: BP 136/79
[2020-11-23] MEDS: BLOOD SUGAR DIAGNOSTIC STRIP TEST SCH ×4 (06:51→20:55)
[2020-11-23 08:00] VITALS: BP 112/62
[2020-11-23] MEDS: ENOXAPARIN 40MG/0.4ML SYR SUBCUT SCH (09:05)
[2020-11-23] MEDS: CEFEPIME 2,000 MG in DEXT 5% WATER 100 ML IV SCH ×2 (09:06→20:56)
[2020-11-23] MEDS: QUETIAPINE FUMARATE 50MG TABLET PO SCH ×2 (09:06→17:33)
[2020-11-23] MEDS: INSULIN LISPRO 100 UNITS/ML SUBCUT SCH ×4 (09:07→22:31)
[2020-11-23 12:00] VITALS: BP 101/62
[2020-11-23] MEDS: LEVOFLOXACIN 250MG TABLET PO SCH (12:49)
[2020-11-23 16:39] VITALS: BP 113/64
[2020-11-23 20:00] VITALS: BP 142/71
[2020-11-23] MEDS: FAMOTIDINE 20MG TABLET PO SCH (20:55)
[2020-11-23] MEDS: INSULIN GLARGINE UD 100 UNITS/ML SYR SUBCUT SCH (22:31)
[2020-11-23] MEDS ORDERED: LORAZEPAM 2MG/ML CPJ IV PRN (23:45)
[2020-11-24] VITALS: BP 110/53
[2020-11-24 04:00] VITALS: BP 112/71
[2020-11-24] MEDS: METOCLOPRAMIDE HCL 10MG/2ML VIAL IV SCH ×4 (06:06→23:05)
[2020-11-24] MEDS: BLOOD SUGAR DIAGNOSTIC STRIP TEST SCH ×4 (07:36→21:04)
[2020-11-24] MEDS: INSULIN LISPRO 100 UNITS/ML SUBCUT SCH ×4 (07:50→21:00)
[2020-11-24 07:53] VITALS: BP 135/67
[2020-11-24] MEDS: QUETIAPINE FUMARATE 50MG TABLET PO SCH ×2 (09:36→17:00)
[2020-11-24] MEDS: ENOXAPARIN 40MG/0.4ML SYR SUBCUT SCH (09:36)
[2020-11-24] MEDS: CEFEPIME 2,000 MG in DEXT 5% WATER 100 ML IV SCH ×2 (09:36→21:03)
[2020-11-24] MEDS: LEVOFLOXACIN 250MG TABLET PO SCH (11:00)
[2020-11-24 12:00] VITALS: BP 110/53
[2020-11-24 16:00] VITALS: BP 107/64
[2020-11-24 20:00] VITALS: BP_SYST 104
[2020-11-24] MEDS: FAMOTIDINE 20MG TABLET PO SCH (21:03)
[2020-11-24] MEDS: INSULIN GLARGINE UD 100 UNITS/ML SYR SUBCUT SCH (22:17)
[2020-11-25] VITALS: BP 127/75
[2020-11-25] MEDS ORDERED: LORAZEPAM 2MG/ML CPJ IV PRN (01:15)
[2020-11-25 04:00] VITALS: BP 105/50
[2020-11-25] MEDS: METOCLOPRAMIDE HCL 10MG/2ML VIAL IV SCH ×3 (06:11→17:12)
[2020-11-25] MEDS: INSULIN LISPRO 100 UNITS/ML SUBCUT SCH ×4 (07:50→21:46)
[2020-11-25 08:00] VITALS: BP_SYST 116; BP_SYST 121; BP_DIAS 61; BP_DIAS 77
[2020-11-25] MEDS: QUETIAPINE FUMARATE 50MG TABLET PO SCH ×2 (08:54→17:12)
[2020-11-25] MEDS: CEFEPIME 2,000 MG in DEXT 5% WATER 100 ML IV SCH ×2 (08:54→21:45)
[2020-11-25] MEDS: ENOXAPARIN 40MG/0.4ML SYR SUBCUT SCH (08:57)
[2020-11-25] MEDS: LEVOFLOXACIN 250MG TABLET PO SCH (11:00)
[2020-11-25 12:00] VITALS: BP 116/61
[2020-11-25] MEDS: BLOOD SUGAR DIAGNOSTIC STRIP TEST SCH ×3 (12:20→21:38)
[2020-11-25 16:00] VITALS: BP 106/64
[2020-11-25 20:00] VITALS: BP 95/77
[2020-11-25] MEDS: FAMOTIDINE 20MG TABLET PO SCH (21:45)
[2020-11-25] MEDS: INSULIN GLARGINE UD 100 UNITS/ML SYR SUBCUT SCH (22:35)
[2020-11-26] VITALS: BP 103/62
[2020-11-26] MEDS: METOCLOPRAMIDE HCL 10MG/2ML VIAL IV SCH ×4 (00:19→17:12)
[2020-11-26 04:00] VITALS: BP 148/63
[2020-11-26] MEDS: BLOOD SUGAR DIAGNOSTIC STRIP TEST SCH ×3 (06:37→17:11)
[2020-11-26 08:00] VITALS: BP 121/71
[2020-11-26] MEDS: QUETIAPINE FUMARATE 50MG TABLET PO SCH ×2 (08:35→16:50)
[2020-11-26] MEDS: CEFEPIME 2,000 MG in DEXT 5% WATER 100 ML IV SCH ×2 (08:37→16:50)
[2020-11-26] MEDS: ENOXAPARIN 40MG/0.4ML SYR SUBCUT SCH (08:37)
[2020-11-26] MEDS: INSULIN LISPRO 100 UNITS/ML SUBCUT SCH ×3 (08:38→17:19)
[2020-11-26] MEDS: LEVOFLOXACIN 250MG TABLET PO SCH (11:23)
[2020-11-26 12:00] VITALS: BP 93/58
[2020-11-26] MEDS ORDERED: QUET50TA MT (12:17)
[2020-11-26 15:33] VITALS: BP 140/74
[2020-11-26 16:00] VITALS: BP 132/63
== END 2020-11-26 20:05 | disposition home health service (06) | DRG 622 ==
LOC: ER 22:25 → MICUSO 11-12 07:53 → EDBEDREQTM 11-12 08:01 → EDBEDREQ 11-12 08:01 → 6EST 11-12 20:17
PROVIDERS: ADMIT Internal Medicine; ATTEND Internal Medicine
PROC: 02WYX3Z Revision of Infusion Device in Great Vessel, External Approach (ICD-10-PCS; 2020-11-11)
PROC: 0JBQ0ZZ Excision of Right Foot Subcutaneous Tissue and Fascia, Open Approach (ICD-10-PCS; 2020-11-15)
PROC: 0JBQ0ZZ Excision of Right Foot Subcutaneous Tissue and Fascia, Open Approach (ICD-10-PCS; principal; 2020-11-23)
DX: E11.69 Type 2 diabetes mellitus with other specified complication (principal); G93.41 Metabolic encephalopathy; L03.115 Cellulitis of right lower limb; M86.8X7 Other osteomyelitis, ankle and foot; E11.621 Type 2 diabetes mellitus with foot ulcer; F03.90 Unspecified dementia, unspecified severity, without behavioral disturbance, psychotic disturbance, mood disturbance, and anxiety; D64.9 Anemia, unspecified; E11.65 Type 2 diabetes mellitus with hyperglycemia; I87.2 Venous insufficiency (chronic) (peripheral); R62.7 Adult failure to thrive; E11.51 Type 2 diabetes mellitus with diabetic peripheral angiopathy without gangrene; R26.89 Other abnormalities of gait and mobility; L97.519 Non-pressure chronic ulcer of other part of right foot with unspecified severity; Z20.822 Contact with and (suspected) exposure to COVID-19; Z89.421 Acquired absence of other right toe(s); Z82.49 Family history of ischemic heart disease and other diseases of the circulatory system; Z79.84 Long term (current) use of oral hypoglycemic drugs; Z79.2 Long term (current) use of antibiotics; Z79.899 Other long term (current) drug therapy; Z78.1 Physical restraint status; Z68.23 Body mass index [BMI] 23.0-23.9, adult
CPT/HCPCS: 36415; 71045; 73630; 74018; 80048; 80053; 82962; 83036; 85025; 85027; 85651; 86140; 87426; 93005; 97116; 97530; 99285; A6261; J0692; J1650; J1815; J2060; J2765; J7040; J7060; A4315